=== PATIENT | female | born 1960 | race Caucasian/White ===

== ENCOUNTER → 2025-02-28 18:45 | Outpatient (CLI) | payer OTHER, SELFPAY ==
--- NOTE | 2025-02-28 18:47 | DI.RAD.S_ITS ---
PROCEDURE: XR WRIST RT MIN 3V INDICATIONS: Right wrist pain after fall TECHNIQUE: Four views of the right wrist were acquired. COMPARISON: None. FINDINGS: Bones: There are no fracture or other osseous abnormalities Joints: Mild degeneration of the 1st CMC. Soft tissues: No soft tissue abnormality. IMPRESSION: No fracture. Dictated by: Gabriel Em M.D. on 03/01/2025 at 11:54 Approved by: Gabriel Em M.D. on 03/01/2025 at 11:55
== END ==
LOC: RAD 18:47
PROVIDERS: Referring Provider Nurse Practitioner Family; Visit Provider Nurse Practitioner Family
DX: M25.531 Pain in right wrist (principal)
CPT/HCPCS: 73110